=== PATIENT | female | born 1970 | race Two or more races ===

== ENCOUNTER 2019-09-17 17:14 | Emergency (ER) | payer OTHER ==
[~2019-09-17] VITALS: Wt 78.0 kg
[~2019-09-17 17:14] MED LIST: BACL10TA PO; IBUP-1542 PO
[2019-09-17] MEDS ORDERED: KETOROLAC 30 MG INJ IM STA (17:36)
[2019-09-17 18:11] VITALS: BP 135/85; PULSE 70; RESP 18
== END 2019-09-17 18:12 | disposition home or self-care (01) ==
LOC: FTE 17:14
DX: M54.5 Low back pain (principal)
CPT/HCPCS: 81025; 96372; J1885; Z7502